=== PATIENT | female | born 1970 | race Caucasian/White ===

== ENCOUNTER 2023-11-06 19:33 | Emergency (ER) | payer SELFPAY ==
[~2023-11-06] VITALS: Ht 157.5 cm; Wt 64.1 kg
[2023-11-06 20:09] VITALS: TEMP 97.9; O2SAT 99
[2023-11-06 20:31] LABS: CLARITY URINE TURBID (CLEAR); COLOR URINE YELLOW (YELLOW); GLUCOSE URINE NEGATIVE (NEGATIVE); KETONES URINE NEGATIVE (NEGATIVE); LEUKOCYTE ESTERASE URINE 3+ (NEGATIVE); NITRITE URINE POSITIVE (NEGATIVE); OCCULT BLOOD URINE 1+ (NEGATIVE); PROTEIN URINE 1+ (NEGATIVE); SPECIFIC GRAVITY URINE 1.016 (1.005-1.030); UROBILINOGEN URINE 0.2 E.U./dL (0.2-1.0)
[2023-11-06 20:36] LABS: BASOPHILS % 0.2 % (0.0-2.0); DIFFERENTIAL COMMENT 0; EOSINOPHILS % 4.2 % (0.0-5.0); HEMATOCRIT. 41.2 % (36.0-48.0); HEMOGLOBIN. 13.8 g/dL (12.0-16.0); MEAN CORPUSCULAR HGB CONC 33.5 g/dL (31.0-37.0); MEAN CORPUSCULAR VOLUME 77.7 fL (81.0-99.0); MEAN PLATELET VOLUME 9.4 fl (7.4-10.4); MONOCYTES % 9.3 % (2.0-8.0); NEUTROPHILS % 57.3 % (40.0-76.0); PLATELET 311 x1000/uL (130-400); RED CELL DISTRIBUTION WIDTH 14.8 % (11.6-14.6); WHITE BLOOD COUNT 9.2 x1000/uL (4.5-11.0)
[2023-11-06 20:43] LABS: RBC URINE 15-25 /hpf (0-2); WBC URINE TNTC /hpf (0-2)
[2023-11-06 20:44] LABS: BACTERIA URINE 4+; SQUAMOUS EPITHELIAL CELL URINE 2+ /lpf (RARE/1+)
[2023-11-06 20:52] LABS: ALANINE AMINOTRANSFERASE 26 IU/L (10-49); ALBUMIN 4.8 g/dL (3.2-4.8); ASPARTATE AMINOTRANSFERASE 28 IU/L (<34); BILIRUBIN TOTAL 0.4 mg/dL (0.1-1.0); CALCIUM 9.9 mg/dL (8.7-10.4); CARBON DIOXIDE 28 mEq/L (21-32); CHLORIDE 104 mEq/L (98-107); CREATININE 0.8 mg/dL (0.6-1.0); GLUCOSE 108 mg/dL (70-105); POTASSIUM 4.5 mEq/L (3.5-5.1); PROTEIN TOTAL 8.2 g/dL (6.0-8.3); SODIUM 138 mEq/L (136-145); TROPONIN I HIGH SENSITIVITY 19 ng/L (3.0-34); UREA NITROGEN BLOOD 19 mg/dL (9-23)
[2023-11-06] MEDS: ONDANSETRON HCL 4MG/2ML INJ IV STA (21:44)
[2023-11-06] MEDS: SODIUM CHLORIDE 0.9% 1,000 ML IV ONE (21:44)
[2023-11-06] MEDS: MORPHINE SULFATE 4 MG/ML INJ (FOR IV/IM USE) IV STA (21:44)
[2023-11-06] MEDS: CEFTRIAXONE 1GM/50ML 50 ML IV ONE (21:44)
[2023-11-06] MEDS ORDERED: CEPH500T MT (22:27)
[2023-11-06] MEDS: KETOROLAC 15MG/ML VIAL IV ONE (22:46)
[2023-11-06 23:20] VITALS: BP 128/72; PULSE 68; RESP 15
== END 2023-11-06 23:20 | disposition home or self-care (01) ==
LOC: ER 20:43
DX: R10.819 Abdominal tenderness, unspecified site (principal); R11.2 Nausea with vomiting, unspecified; N39.0 Urinary tract infection, site not specified; Z98.890 Other specified postprocedural states
CPT/HCPCS: 80053; 81003; 83690; 85025; 87086; 87186; 84484; 87077; 36415; 74176; 93005; 96365; 96375; 99285; J0696; J1885; J2405; J2270; J7030; Z7610 ×3